=== PATIENT | female | born 1955 | race Caucasian/White ===

== ENCOUNTER → 2018-10-20 | Outpatient (REF) ==
--- NOTE | 2018-10-21 05:30 | REP ---
Clinical: Pain in disability. Technique: AP, lateral, coned-down views of the lumbosacral spine. Correlation: MRI dated 02/06/2010. Findings: Generalized age-related osteopenia noted. Very subtle compression deformity at L3 is suggested which reflects a relatively new finding as compared to 2010 and demonstrates up approximately 5% loss of anterior superior vertebral body height. There is grade 1 anterolisthesis at the L4-5 level of approximately 10 mm which also represents a relatively new finding as compared to 2010. Further multilevel degenerative changes include endplate sclerosis with mild disc space narrowing and hypertrophic facet changes all of which are most pronounced at the L5-S1 level. Impression: Moderate/advanced degenerative changes as noted above. Electronically Signed by West Chen MD 10/21/2018 05:22 A
== END ==
LOC: M SMT 14:40
PROVIDERS: ATTEND Internal Medicine
DX: Z00.00 Encounter for general adult medical examination without abnormal findings (principal)